=== PATIENT | male | born 1985 | race Caucasian/White ===

== ENCOUNTER 2016-12-18 02:00 | Emergency (ER) | payer BC ==
[2016-12-18 02:20] VITALS: BP 124/72
[2016-12-18] MEDS ORDERED: Glucagon,Human Recombinant 1 MG Vial IVPUSH ONE (02:27)
[2016-12-18] MEDS ORDERED: Sodium Chloride 0.9% 10 ML Syringe FLUSH PRN (02:32)
--- NOTE | 2016-12-18 03:02 | EDM.PDOC ---
ED HPI ENT - General Chief Complaint: ENT Problem Stated Complaint: Throat swelling, difficulty swallowing Time Seen by Provider: 12/18/16 02:15 Source of Information: Reports: Patient History Limitations: Reports: No limitations - History of Present Illness INITIAL COMMENTS - FREE TEXT/NARRATIVE: patient had a few alcoholic drinks tonight (6 beers), he was at home with a friend and going to eat a pizza when he started having a difficult time swallowing. Has been feeling fine prior, no fever, chills, nausea, vomiting. Symptom Onset Date: 12/18/16 Timing/Duration: Reports: Minutes:, Sudden onset Severity: moderate Location: Reports: throat Improves with: Reports: None Associated Symptoms: Reports: no other symptoms - Related Data Allergies/ADRs: Allergies Allergy/AdvReac Type Severity Reaction Status Date / Time No Known Allergies Allergy Verified 12/18/16 02:17 Home Meds: Home Meds Escitalopram [Lexapro] 20 mg PO DAILY 12/18/16 [History] Past Medical History Psychiatric History: Reports: Anxiety, Depression - Past Surgical History HEENT Surgical History: Reports: Oral surgery GI Surgical History: Reports: Appendectomy Social & Family History - Tobacco Use Smoking Status *Q: Current Every Day Smoker Years of Tobacco use: 15 Packs/Tins Daily: 1 ED ROS ENT - Review of Systems Review Of Systems: ROS reveals no pertinent complaints other than HPI. ED EXAM, ENT - Physical Exam Exam: See Below Exam Limited By: No limitations General Appearance: alert Mouth/Throat: Pharyngeal erythema Head: atraumatic, normocephalic Neck: normal inspection, supple, non-tender Respiratory/Chest: lungs clear Cardiovascular: regular rate, rhythm Course - Vital Signs Last Recorded V/S: Last Vital Signs Temp 35.9 C 12/18/16 02:05 Pulse 94 12/18/16 02:05 Resp 16 12/18/16 02:05 BP 124/72 12/18/16 02:05 Pulse Ox 97 12/18/16 02:05 - Orders/Labs/Meds Orders: Active Orders 24 hr Category Date Time Status Neck Soft Tissue [CR] Stat Exams 12/18/16 02:20 Ordered Sodium Chloride 0.9% [Saline Flush] Med 12/18/16 02:32 Ordered 10 ml FLUSH ASDIRECTED PRN Saline Lock Insert [OM.PC] Routine Oth 12/18/16 02:32 Ordered Medication Orders Sodium Chloride (Saline Flush) 10 ml FLUSH ASDIRECTED PRN PRN Reason: Keep Vein Open Meds: Medications Generic Name Dose Route Start Last Admin Trade Name Freq PRN Reason Stop Dose Admin Sodium Chloride 10 ml 12/18/16 02:32 Saline Flush FLUSH ASDIRECTED PRN Keep Vein Open Discontinued Medications Generic Name Dose Route Start Last Admin Trade Name Freq PRN Reason Stop Dose Admin Glucagon 1 mg 12/18/16 02:27 Glucagen IVPUSH 12/18/16 02:28 ONETIME ONE - Radiology Interpretation Free Text/Narrative:: x ray of soft tissues showing no acute findings Departure - Departure Time of Disposition: 03:15 Disposition: DC/Tfer to Other 70 Condition: good Clinical Impression: Esophageal spasm Forms: ED Department Discharge Care Plan Goals: transfer to [place] to care of Dr. Parks. - Problem List & Annotations (1) Esophageal spasm SNOMED Code(s): 77453104 Code(s): K22.4 - DYSKINESIA OF ESOPHAGUS Status: Acute Priority: Medium - My Orders Last 24 Hours: My Active Orders 12/18/16 02:20 Neck Soft Tissue [CR] Stat 12/18/16 02:32 Sodium Chloride 0.9% [Saline Flush] 10 ml FLUSH ASDIRECTED PRN Saline Lock Insert [OM.PC] Routine - Assessment/Plan Last 24 Hours: My Active Orders 12/18/16 02:20 Neck Soft Tissue [CR] Stat 12/18/16 02:32 Sodium Chloride 0.9% [Saline Flush] 10 ml FLUSH ASDIRECTED PRN Saline Lock Insert [OM.PC] Routine Plan: transfer to [place] to care of Dr. Parks.
== END 2016-12-18 03:13 | disposition other institution (70) ==
LOC: VM.ED 02:00
DX: K22.4 Dyskinesia of esophagus (principal); F41.9 Anxiety disorder, unspecified; F32.9 Major depressive disorder, single episode, unspecified; F17.210 Nicotine dependence, cigarettes, uncomplicated
CPT/HCPCS: 70360; 96374; 99284; J1610